=== PATIENT | female | born 2005 | race Caucasian/White ===

== ENCOUNTER 2024-04-30 13:13 | Outpatient (AMB) | payer BC, SELFPAY ==
--- NOTE | 2024-04-30 13:15 | MHC.PC.OV ---
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 Intake Note: New patient visit Allergies No Known Allergies Allergy (Verified 04/30/24 13:15) Medication List - Last Reconciled 04/30/24 by Radha Razo PA-C No Known Home Meds Tobacco use date assessed: 04/30/24 Dental Screening Dental Screen Date: 04/30/24 Did you have a dental visit in the last 12 months?: Yes Did you have a dental problem in the last 6 months where you did not have access to dental care?: No Was dental information given to patient?: Patient has dentist 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 She is transferring from [place]. She has a hx of anxiety and depression. Derm: Does complain today of right external ear itching/flaking. She has tried lotion without any reprieve. Denies any drainage, fever, chills or pain. No decreased hearing. She did take out a new piercing about a week ago but has not noticed any change in her symptoms. She does also complain today of acne that comes and goes. Does flare around the time of her menses. She says that she has used every hukv-zko-zxvnmrh and some prescription topical face washes without any improvement. Psych: Has a history of anxiety and depression and states for the most part the depressions very mild and minor but the anxiety comes and goes. She does at times have panic attacks but very rarely. She does not think that she would want to take something every day. She states that she wants to try going back to the gym. 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 1. Little interest or pleasure in doing things: not at all 2. Feeling down, depressed, or hopeless: not at all 3. Trouble falling or staying asleep, or sleeping too much: not at all 4. Feeling tired or having little energy: several days 5. Poor appetite or overeating: not at all 6. Feeling bad about yourself - or that you are a failure or have let yourself or your family down: several days 7. Trouble concentrating on things, such as reading the newspaper or watching television: not at all 8. Moving or speaking so slowly that other people could have noticed. Or the opposite - being so fidgety or restless that you have been moving around a lot more than usual: not at all 9. Thoughts that you would be better off or of hurting yourself in some way: not at all Total score: 2 Depression Screening Interpretation: Negative Depression Screening Done: Yes 72646 - PHQ-9 Billing: Yes Source: Developed by Drs. Jasper Rousseau, Megha Saba, Dutch Starkey and colleagues, with an educational merrick from [employer]. Thrive Questionnaire I am a: Patient What is your living situation today?: I have a steady place to live Within the past 12 months, did the food you bought not last and you didn't have the money to get more?: Never true Within the past 12 months, did you worry whether your food would run out before you got money to buy more?: Never true Do you have trouble paying for medicines?: No Do you have trouble getting transportation to medical appointments?: No Do you have trouble paying your heating and electricity bill?: No Do you have trouble taking care of your child, family member or friend?: No Do you have trouble with day-to-day activities such as bathing, preparing meals, shopping, managing finances, etc.?: No Are you currently unemployed and looking for a job?: No Are you interested in more education?: No Please select the resources that you would like help with: None Currently or been in a relationship where the following occur: No concerns reported THRIVE Score: 0 AUDIT C Alcohol Use Questionnaire (AUDIT-C) 1. How often do you have a drink containing alcohol?: Monthly or less 2. How many drinks containing alcohol do you have on a typical day when you are drinking?: 1 or 2 3. How often do you have six or more drinks on one occasion?: Never Total Score: 1 Score Reviewed/Action Taken: Yes SARITHA-7 AMB Questionnaire SARITHA-7 Feeling nervous, anxious, or on edge: 2 = More than half the days Not being able to stop or control worryin = Not at all Worrying too much about different things: 1 = Several days Trouble relaxin = Several days Being so restless that it is hard to sit still: 0 = Not at all Becoming easily annoyed or irritable: 1 = Several days Feeling afraid as if something awful might happen: 0 = Not at all Total SARITHA-7 score (0-4 normal; 5-9 mild; 10-14 moderate; 15-21 severe): 5 Source: Developed by Drs. Jasper Rousseau, Megha Saba, Dutch Starkey and colleagues, with an educational merrick from [employer]. SARITHA-7 Assessment Billing SARITHA-7 Assessment Tool: SARITHA-7 Assessment 19442 Physical exam (Primary Care) PHQ-9: PHQ-9 Score PHQ-9: Total score 2 04/30/24 13:17 Depression Screening Interpretation: Negative Currently or been in a relationship where the following occur: No concerns reported Const Orientation/consciousness: patient oriented x3 HENMT Ears: hearing grossly normal bilaterally Neck Thyroid: Thyroid normal Lymphatic: no lymphadenopathy noted Resp Auscultation: clear to auscultation bilaterally Cardio Rate: regular rate Rhythm: regular rhythm Heart sounds: S1 normal heart sound present and S2 normal heart sound present GI Inspection: Yes normal to inspection Palpation (GI): Soft to palpation and Other GI palpation findings present (nontender, no cva tenderness) Auscultation: normoactive bowel sounds Rectal Exam - Female: deferred Skin Other: Scattered open and closed comedones noted on the face. There is flaking noted the external right pinna. Neuro General: patient oriented x3, gait normal and no focal motor deficits Coding Level of Care Code New Pt Level 3 (52178) Complex EM visit Add On G2211 Diagnoses Generalized anxiety disorder F41.1 Dysthymia F34.1 Acne L70.9 Atopic dermatitis L20.9 Additional Codes PHQ-9 - 39715 - PHQ-9 Billing: Yes ([id number]) SARITHA-7 Assessment Billing - SARITHA-7 Assessment Tool: SARITHA-7 Assessment 58441 ([id number]) Assessment & Plan Assessment & Plan (1) Generalized anxiety disorder: Code(s): F41.1 - Generalized anxiety disorder Category: Medical Plan: Discussed that she can use hydroxyzine as needed. We reviewed risks and benefits and adverse effects of this medication. (2) Dysthymia: Code(s): F34.1 - Dysthymic disorder Category: Medical Plan: Currently feels well and does not want medication. (3) Acne: Code(s): L70.9 - Acne, unspecified Category: Medical Plan: We will try spironolactone. We did discuss that this can lower her blood pressure and cause electrolyte derangement specifically with potassium. We will monitor and recheck labs in 2 weeks after starting the medication along with blood pressure. She will return at that time also for a physical. Referral for derm. (4) Atopic dermatitis: Code(s): L20.9 - Atopic dermatitis, unspecified Category: Medical Plan: We will try triamcinolone cream. Reviewed risks and benefits and adverse effects of this medication. Orders: Orders Comprehensive [place]. Panel Fast Today F34.1 - Dysthymic disorder, F41.1 - Generalized anxiety disorder, Z00.00 - Encounter for general adult medical examination without abnormal findings Complete Blood Count Auto Diff Today F34.1 - Dysthymic disorder, F41.1 - Generalized anxiety disorder, Z00.00 - Encounter for general adult medical examination without abnormal findings Lipid Panel Today F34.1 - Dysthymic disorder, F41.1 - Generalized anxiety disorder, Z00.00 - Encounter for general adult medical examination without abnormal findings TSH reflex Free T4 Today F34.1 - Dysthymic disorder, F41.1 - Generalized anxiety disorder, Z00.00 - Encounter for general adult medical examination without abnormal findings UA CC w/rflx Micro + Cult Today F34.1 - Dysthymic disorder, F41.1 - Generalized anxiety disorder, Z00.00 - Encounter for general adult medical examination without abnormal findings, Z13.220 - Encounter for screening for lipoid disorders Referrals Dermatology Referral L20.9 - Atopic dermatitis, unspecified, L70.9 - Acne, unspecified Medications: New triamcinolone acetonide 0.025% 1 appl topical TID 15 grams 0RF hydroxyzine HCl 25 mg PO BID PRN 30 tabs 0RF anxiety spironolactone 25 mg PO DAILY 90 tabs 0RF
[2024-04-30 13:20] VITALS: BP 92/64; PULSE 92; RESP 12; O2SAT 98; BMI 24.4
--- OUTSIDE RECORDS SUMMARY | 2024-04-30 15:47 | XMS_ITS | Encounter Summary ---
Author Organization [facility] Address [address] [place] [address] Phone Care Team Providers Care Supervisor [employer] Name Role Phone Vidya Neumann MD Primary Care Provider [phone] Encounter Details Date Type Department Care Team (Late st Contact Info) Description 07/15/2017 [facility]version [facility]counter [facility] [address] [address] Social History Tobacco Use Types Packs/Day Years Used Date Smoking Tobacco: Never Assessed Comments Unknown Sex and Gender Information Value Date Recorded Sex Assigned at Not on file Legal Sex Female 6:19 PM EDT Gender Identity Not on file Sexual Orientation Not on file documented as of this encounter Plan of Treatment Not on file documented as of this encounter Visit Diagnoses Not on filedocumented in this encounter Care Teams Supervisor [employer] Relationship Specialty Start Date End Date Vidya Neumann MD [address] [place] [address] PCP - General Pediatrics 08/21/17 04/06/24 documented as of this encounter
--- OUTSIDE RECORDS SUMMARY | 2024-04-30 15:47 | XMS_ITS | Clinical Summary ---
Author Organization [facility] Address [address] [place], [place] [id number] Phone Care Team Providers Care Foreman Shipping Department Name Role Phone Unavailable Primary Care Provider Unavailabl e Allergies No known active allergies Medications No known medications Active Problems Problem Noted Date Diagnosed Date Allergic rhinitis Immunizations Immunization Administration Dates Next Due DTaP 07/21/2008, 5,2003,07/30,2003 HPV Vaccine 9 Valent 10/12/2017,09/29/2016 Hep A, ped/adol 10/12/2017,09/29/2016 Hep B, ped/adol 02/05/2004,2003,2003 Hib (PRP-T) 07/07/2004, 4,2003,06/02 IPV 07/21/2008, 4,2003,06/02 Influenza, injectable, quadrivalent 01/04/2008 Influenza, injectable, triva lent, preservative free 12/16/2004,02/05/2004,2003 MMR 07/05/2007,04/08/2004 Meningococcal Conj (Menactra) MCV4P 08/28/2014 Pneumococcal Conjugate 2003,2003,08/2003 Tdap 08/28/2014 Varicella 07/05/2007,04/08/2004 Family History Medical History Relation Name Comments Asthma Father Relation Name Status Comments Father Alive healthy, thyroi d problem, hx of asthma diagnosed with Asthma, unspecified Mother Alive healthy, thyroi d Social History Tobacco Use Types Packs/Day Years Used Date Smoking Tobacco: Never Assessed Comments No Sex and Gender Information Value Date Recorded Sex Assigned at Not on file Legal Sex Female 6:19 PM EDT Gender Identity Not on file Sexual Orientation Not on file Last Filed Vital Signs Vital Sign Reading Time Taken Comments Blood Pressure 112/64 10/12/2017 9:54 AM EDT Pulse - - Temperature 36.1 ??C (97 ??F) 11/26/2014 12: 00 AM EDT Respiratory Rate - - Oxygen Saturation - - Inhaled Oxygen Concentration - - Weight 59.8 kg (131 lb 12.8 oz) 10/12/2017 9:54 AM EDT Height 165.1 cm (5' 5 ) 10/12/2017 9:54 AM EDT Body Mass Index 21.93 10/12/2017 9:54 AM EDT Plan of Treatment Health Maintenance Due Date Last Done Comments Men B Vaccine (1 of 2 - Standard) 2019 Influenza Vaccines (#1) 2023 01/04/20 08, 12/16/2004, 02/05/2004, Additional history exists COVID-19 Vaccine ( - 2023- season) 2023 DTaP,Tdap,and Td Vaccines (7 - Td or Tdap) 08/28/2024 08/28/2014, 07/21/2008, 07/07/2004, Additional history exists Pneumococcal Vaccine Aged Out 2003, 2003, 2003 No longer eligible based on patient's age to complete this topic Hepatitis B Vaccines Completed 02/05/2004, 2003, 2003 HIB Vaccines Completed 07/07/2004, 06/26, 2003, Additional history exists MMR Vaccines Completed 07/05/2007, 04/08/2004 Varicella Vaccines Completed 07/05/2007, 04/08/2004 IPV Vaccines Completed 07/21/2008, 06/26, 02/05/2004, Additional history exists Meningococcal Vaccine Aged Out 08/28/2014 No jimbo jing eligible based on patient's age to complete this topic HPV Vaccines Completed 10/12/2017, 09/29/2016 Hepatitis A Vaccines Completed 10/12/2017, 09/30/19 Insurance * Guarantor: KARTHIK OCONNOR Account Type Relation to Patient Date of Phone Billing Address Personal/Family Mother [address] [place] [phone] [place] [address] HMO
--- OUTSIDE RECORDS SUMMARY | 2024-04-30 15:47 | XMS_ITS | Clinical Summary ---
Author Organization [facility] it Address [address] [place] [address] Care Team Providers Care Legal Process Specialist Name Role Phone Yasemin Ballesteros MD Primary Care Provider [phone] Immunizations Name Administration Dates Next Due Pfizer SARS-CoV-2 COVID-19, mRNA, LNP-S, preservative free 07/15/2020,06/24/2020 Surgical History Surgery Date Site/Laterality Comments OTHER SURGICAL HISTORY PROCEDURE: DENIES PREVIOUS SURGERY Medical History Medical History Date Comments Allergic rhinitis 02/13/2018 DX:Allergic rh initis Depression 02/13/2018 DX:Depression; C OMMENT: 10/12/17 doing better with mood. Middle School Counselor has spoken with High School Counselor- available if needed. Mother to monitor and all if not doing well. At that point, patient will be referred to Outside Therapist Family History Medical History Relation Name Comments No Known Problems Brother Asthma Father Heart failure Father related to dec ompensated thyroid disease Hyperthyroidism Father Coronary artery disease Maternal Grandfather s/p VA prior to age 50 now with AICD/PPM, HTN, HLD Hyperthyroidism Maternal Grandmother Hyperthyroidism Mother Relation Name Status Comments Brother Alive Father Alive Maternal Grandfather Alive Maternal Grandmother Alive Mother Alive Social History Tobacco Use Types Packs/Day Years Used Date Smoking Tobacco: Never Smokeless Tobacco: Never Alcohol Use Standard Drinks/Week Comments No 0 (1 standard drink = 0.6 oz pur e alcohol) Comments Unknown Sex and Gender Information Value Date Recorded Sex Assigned at Not on file Legal Sex Female 3:57 AM EST Gender Identity Not on file Sexual Orientation Not on file Obstetrics History Last Filed Vital Signs Vital Sign Reading Time Taken Comments Blood Pressure 121/76 01/23/2022 10:37 AM EST Pulse 73 01/23/2022 10:37 AM EST Temperature - - Respiratory Rate - - Oxygen Saturation - - Inhaled Oxygen Concentration - - Weight 63.7 kg (140 lb 6.4 oz) 01/23/2022 10:37 AM EST Height 167.6 cm (5' 6 ) 01/23/2022 10:37 AM EST Body Mass Index 22.66 01/23/2022 10:37 AM EST Plan of Treatment Upcoming Encounters Date Type Department Care Team (Late st Contact Info) Description 07/23/2024 11:30 AM EDT Office Visit Obstetrics and Gynecology - [place] [address] [place] [address] Feng Tanvir, [facility] [address] [place] [id number] Health Maintenance Due Date Last Done Comments Gonorrhea/Chlamydia Screening 2003 Meningococcal B Vacine (1 of 2 - Standard) 2019 Annual Well Child Visit (3-21 years old) 01/29/2022 01/28/2021, 01/23/2020, 10/14/2018 Depression Screening 01/29/2022 HIV Screening 01/29/2022 Hepatitis C Screening 01/29/2022 Social Influencers of Health Screening 01/29/2022 COVID-19 Vaccine ( season) 2023 07/15/2020, 06/24/2020 Influenza Vaccine (#1) 2023 , 01/23/2020, 01/04/2008, Additional history exists Cervical Cancer Screening: Pap Smear 2024 DTaP,Tdap,and Td Vaccines (7 - Td or Tdap) 08/28/2024 08/28/2014, 07/21/2008, 07/07/2004, Additional history exists Pneumococcal Vaccine: Pediatrics (0 to 5 Years) and At-Risk Patients (6 to 64 Years) Aged Out 2003, 2003, 2003 No longer eligible based on patient's age to complete this topic Hepatitis B Vaccines Completed 02/05/2004, 2003, 2003 HIB Vaccines Completed 07/07/2004, 09/27, 2003, Additional history exists MMR Vaccines Completed 07/05/2007, 04/08/2004 Varicella Vaccines Completed 07/05/2007, 04/08/2004 IPV Vaccines Completed 07/21/2008, 06/26, 02/05/2004, Additional history exists HPV Vaccines Completed 10/12/2017, 09/29/2016 Hepatitis A Vaccines Completed 10/12/2017, 09/30/19 Meningococcal ACWY Vaccine Completed 01/23/2020, RSV Immunization Patients Under 20 months Aged Out No longer eligible based on patient's age to complete this topic Insurance Care Teams Legal Process Specialist Relationship Specialty Start Date End Date Yasemin Ballesteros MD [address] [place] [address] PCP - General Pediatrics 06/22/21
== END 2024-04-30 13:49 | disposition home or self-care (01) ==
PROVIDERS: PCP Physician Assistant; Visit Provider Physician Assistant
DX: F41.1 Generalized anxiety disorder (principal); F34.1 Dysthymic disorder; L70.9 Acne, unspecified; L20.9 Atopic dermatitis, unspecified

== ENCOUNTER → 2024-04-30 13:13 | Outpatient (BNVA) | payer BC, SELFPAY | PROVIDERS: PCP Physician Assistant; Visit Provider Physician Assistant | DX: F41.1 Generalized anxiety disorder (principal); F34.1 Dysthymic disorder; L70.9 Acne, unspecified; L20.9 Atopic dermatitis, unspecified | CPT/HCPCS: 96127 ==

== ENCOUNTER 2024-06-04 09:12 | Outpatient (REF) | payer BC, SELFPAY ==
--- OUTSIDE RECORDS SUMMARY | 2024-06-04 09:49 | XMS_ITS | Clinical Summary ---
Author Organization [facility] Address [address] [place] [address] Care Team Providers Care Neonatal Specialist Name Role Phone Unavailable Primary Care Provider Unavailabl e Source Comments PLEASE NOTE, if this patient is a minor, it may be UNLAWFUL to discuss sensitive information that is contained in these records (such as FAMILY PLANNING, MENTAL HEALTH or SUBSTANCE ABUSE) with the minor patient's parent or other person without the patient's specific authorization.[facility] Immunizations Immunization Administration Dates Next Due PFIZER COVID VACCINE, PURPLE CAP, 12+ 07/15/2020 ,06/24/2020 Social History Tobacco Use Types Packs/Day Years Used Date Smoking Tobacco: Never Assessed Social Connections Answer Date Recorded Social Connections and Isolation 0 06/24/2020 Financial Resource Strain Answer Date R ecorded Financial Resource Strain 0 2020 Stress Answer Date Recorded Stress 0 06/24/2020 Physical Activity Answer Date Recorded Physical Activity 0 06/24/2020 Food Insecurity Answer Date Recorded Food 0 06/24/2020 Transportation Needs Answer Date Record ed Transportation 0 06/24/2020 Housing Stability Answer Date Recorded Housing 0 06/24/2020 Safety and Environment Answer Date Gama rded Safety 0 06/24/2020 Utilities Answer Date Recorded Utilities 0 06/24/2020 Employment Answer Date Recorded Employment 0 06/24/2020 Comments Unknown Sex and Gender Information Value Date Recorded Sex Assigned at Not on file Legal Sex Female 12:29 PM PDT Gender Identity Not on file Sexual Orientation Not on file Plan of Treatment Health Maintenance Due Date Last Done Comments Anxiety Screening 2003 HPV Screening 2003 Hepatitis C Screening 2003 Pap + HPV 2003 Tobacco Screening 2003 Chlamydia Screening 2016 Gonorrhea Screening 2016 Imm-Varicella (1 of 2 - 13+ 2-dose series) 2016 HIV Screening 2018 Imm-HPV (1 - 3-dose series) 2018 Relationship Safety Screening/Counseling 2018 Hypertension Screening (#1) 2021 Imm-DTaP/Tdap/Td (1 - Tdap) 2022 Imm-Hepatitis B (1 of 3 - 19+ 3-dose series) 2022 [id number] (3 - 2023- season) 2023 07/15/2020, 06/24/2020 Imm-Influenza (#1) 2023 Alcohol and Drug Screen 02/27/2024 Depression Annual Screen 02/27/2024 Cervical Cancer Screening 2024 Pap Smear 2024 Cervical Ablation/Cold-Knife Conization Discontinued Cervical Cryotherapy Discontinued Colposcopy Discontinued Endometrial Biopsy Discontinued Excision/Leep Discontinued HPV Genotyping Discontinued Imm-Hepatitis A Aged Out No longer el igible based on patient's age to complete this topic Vaginal Pap Discontinued Vulvoscopy Discontinued Insurance DANTE AWAD/MISTY JONES Member Subscriber Plan / Payer (Ef fective 2016-Present) Name:Connie Salazar Relation to Subscriber:Self Name:Connie Salazar Payer ID:[id number] Type:Indemnity Address: [facility] [address] [place] [address]
--- OUTSIDE RECORDS SUMMARY | 2024-06-04 09:49 | XMS_ITS | Clinical Summary ---
Author Organization [facility] Address [address] [place], [place] [phone] Phone Care Team Providers Care Meat Counter Worker Name Role Phone Unavailable Primary Care Provider [...] Hepatitis A Vaccines Completed 10/12/2017, 09/30/[address] [place] [address] [place] [address] HMO
--- OUTSIDE RECORDS SUMMARY | 2024-06-04 09:49 | XMS_ITS | Encounter Summary ---
Author Organization [facility] Address [address] [place] [phone] Phone Care Team Providers Care Realtime Reporter Name Role Phone Vidya Neumann MD Primary Care Provider [phone] Encounter Details Date Type Department Care Team (Late st Contact Info) Description 07/15/2017 [facility]counter [facility] [address] [address] Social History Tobacco Use Types Packs/Day Years [...] on filedocumented in this encounter Care Teams Realtime Reporter Relationship Specialty Start Date End Date Vidya Neumann MD [address] [place] [address] PCP - General Pediatrics 08/21/17 04/06/24 documented as of this encounter
--- OUTSIDE RECORDS SUMMARY | 2024-06-04 09:50 | XMS_ITS | Clinical Summary ---
Author Organization [facility] it Address [address] [place] [address] Care Team Providers Care Car Repair Supervisor Name Role Phone Yasemin Ballesteros MD Primary Care Provider [phone] Allergies No known active allergies Medications hydrOXYzine HCL (ATARAX) 10 mg tablet TAKE 1 TAB BY MOUTH 3 TIMES DAILY NEEDED FOR ANXIETY. CAN INCREASE DOSE TO 2 TABS 3 TIMES A DAY NEEDED IF LACK OF EFFICIENCY. 05/20/2021 Active escitalopram (LEXAPRO) 10 mg tablet Take 1 tablet (10 mg total) by mouth 1 (one) time each day. 05/11/2021 Active Active Problems Problem Noted Date Diagnosed Date Anxiety 01/23/2020 Weight loss 10/14/2018 Vitamin D deficiency 03/22/2018 Allergic rhinitis 02/13/2018 Depression 02/13/2018 Overview (05/01/2024): 10/12/17 doing better with mood. Middle School Counselor has spoken with High School Counselor- available if needed. Mother to monitor and all if not doing well. At that point, patient will be referred to Outside Therapist Immunizations Name Administration Dates Next Due DTaP (Infanrix) 6wks to less than 7yo ,07/07/2004,2003,07/30,2003 [id number] (Pentacel) 2mo to less than 5yo 07/07/2004,2003,2003,06/02 HPV 9-valent (Gardisil) 9yo to less than 46yo 10/12/2017,09/29/2016 Hepatitis A Pediatric (Havri x; Vaqta) 12mo to less than 19yo 10/12/2017,09/29/2016 Hepatitis B Pediatric (Enger ix B; Recombivax HB) to less than 20 yo 02/05/2004,2003,2003 IPV Inactivated polio (Ipol) 6wks and older 07/21/2008,02/05/2004,2003,06/02 Influenza trivalent, 0.5mL, preservative free (Fluarix; FluLaval; Fluzone) ages 6mo and older (Afluria) 3 years and older 01/28/2021,01/23/2020 Influenza trivalent, with pr eservative (Fluzone; Afluria) 6mo and older 01/04/2008,12/16/2004,02/05/2004,12/20 MMR, measles mumps and rubel la Live (Priorix; M-M-R II) 12mo and older 07/05/2007,04/08/2004 Meningococcal MCV4P 01/23/2020,08/28/2014 [facility] SARS-CoV-2 COVID-19, mRNA, LNP-S, preservative free 07/15/2020,06/24/2020 Pneumococcal Conjugate Vacci ne, 7 Valent 2003,2003,2003 Tdap Tetanus diptheria acell ular pertussis (Boostrix; Adacel) 7yo and older 08/28/2014 Varicella live (Varivax) 12m o and older 07/05/2007,04/08/2004 Surgical History Surgery Date Site/Laterality Comments OTHER [...] Father Coronary artery disease Maternal Grandfather s/p [place] prior to age 50 now with AICD/PPM, [...] AM EDT Office Visit Obstetrics and Gynecology [facility] [address] [place] [phone] Tanvir Toney, [facility] [address] [place] [address] Health Maintenance Due Date Last Done Comments Meningococcal B Vaccine (1 of 2 - Standard) 2019 Annual Well Child Visit (3-21 years old) 01/29/2022 01/28/2021, 01/23/2020, 10/14/2018 Depression Screening 01/29/2022 HIV Screening 01/29/2022 Hepatitis C Screening 01/29/2022 Social Influencers of Health Screening 01/29/2022 Gonorrhea/Chlamydia Screening 01/23/2023 01/23/2022 COVID-19 Vaccine ( season) 2023 07/15/2020, 06/24/2020 Influenza Vaccine (#1) 2023 , 01/23/2020, 01/04/2008, Additional history exists Cervical Cancer Screening: Pap Smear 2024 DTaP,Tdap,and Td Vaccines (7 - Td or Tdap) 08/28/2024 08/28/2014, 07/21/2008, 07/07/2004, Additional history exists Cholesterol Screening (Lipid Panel) 01/22/2025 01/23/2020 Pneumococcal Vaccine: Pediatrics (0 to 5 Years) [...] 09/29/2016 Hepatitis A Vaccines Completed 10/12/2017, 09/30/19 17 Meningococcal ACWY Vaccine Completed 01/23/2020, RSV Immunization Patients Under 20 months Aged Out No longer eligible based on patient's age to complete this topic Procedures Procedure Name Priority Date/Time Associated Diagnosis Comments GONORRHEA/CHLAMYDIA SCRREENING Routine 01/23/2022 LIPID PANEL Routine 01/23/2020 from Last 3 Months or Most Recently Relevant to Health Maintenance Results * Gonorrhea/Chlamydia Screening (01/23/2022) Gonorrhea/Chla mydia Screening ABSTRACTED us Historical Provider MD HEALTH MAINTENANCE Final Result * Lipid panel (01/23/2020) LDL/HDL Ratio 2 0 - 4 Triglycerides 50 0 - 150 mg/dL Cholesterol 140 0 - 200 mg/dL HDL 58 >=40 mg/dL LDL Cholesterol 72 0 - 100 mg/dL Blood Venous blood specimen / Unknown us Historical Provider LAB BLOOD ORDERABLES Radha l Result from Last 3 Months or Most Recently Relevant to Health Maintenance Insurance Care Teams Car Repair Supervisor Relationship Specialty Start Date End Date Yasemin Ballesteros MD [address] [place] [address] PCP - General Pediatrics 06/22/21
[2024-06-04 11:40] LABS: MANUAL DIFF FLAG NO
[2024-06-04 12:07] LABS: Basophils Percent Auto 0.6 % (0-2); Eosinophils Absolute Auto 0.1 X10*3/uL (0.0-0.4); Eosinophils Percent Auto 1.1 % (0-4); Hematocrit 41.1 % (37.0-47.0); Hemoglobin 13.5 g/dl (12.0-16.0); Imm Gran Abs Auto 0.02 X10*3/uL (0.00-0.03); Imm Gran Pct Auto 0.4 % (0.0-0.4); Lymphocytes Absolute Auto 1.5 X10*3/uL (1.2-4.9); Lymphocytes Percent Auto 28.4 % (20-40); Mean Corpuscular HGB Conc 32.8 g/dl (31.0-35.0); Mean Corpuscular Volume 88.4 fL (80.0-98.0); Mean Platelet Volume 10.2 fL (9.4-12.3); Monocytes Absolute Auto 0.5 X10*3/uL (0.1-1.2); Monocytes Percent Auto 9.4 % (2-11); Neutrophils Absolute Auto 3.1 x10*3/uL (2.0-8.3); Neutrophils Percent Auto 60.1 % (45-73); Platelet Count 253 X10*3/uL (160-400); Red Blood Count 4.65 X10*6/uL (4.20-5.50); Red Cell Distribution Width 12.8 % (11.0-16.0); White Blood Count 5.2 X10*3/uL (4.8-10.8)
[2024-06-04 12:24] LABS: Alanine Aminotransferase 71 U/L (0-31); Albumin Level 4.1 g/dL (3.5-5.0); Alkaline Phosphatase 55 U/L (39-117); Anion Gap 7 (12-20); Aspartate Amino Transferase 53 U/L (5-31); Bilirubin Total 0.3 mg/dL (0.0-1.0); Blood Urea Nitrogen 11 mg/dL (9-16); Carbon Dioxide 24 mmol/L (22-29); Chloride 111 mmol/L (96-108); Cholesterol 114 mg/dL (<200); Estimated Glomerular Filt Rate > 60; Glucose Fasting 82 mg/dL (60-99); HDL Cholesterol 57 mg/dL (>40); LDL Cholesterol Calculated 51 mg/dL (<100); Potassium 4.2 mmol/L (3.3-5.1); Sodium 138 mmol/L (135-145); Total Protein 6.8 g/dL (6.5-8.0); Triglycerides 34 mg/dL (<150)
[2024-06-04 12:44] LABS: TSH reflex Free T4 1.07 uIU/mL (0.32-4.0)
== END 2024-06-04 09:13 | disposition home or self-care (01) ==
LOC: HO.WFDLDS 09:12
PROVIDERS: Visit Provider Physician Assistant
DX: Z00.00 Encounter for general adult medical examination without abnormal findings (principal); F41.1 Generalized anxiety disorder; F34.1 Dysthymic disorder; Z13.6 Encounter for screening for cardiovascular disorders
CPT/HCPCS: 36415; 80053; 80061; 84443; 85025

== ENCOUNTER → 2024-06-05 08:24 | Outpatient (BNVA) | payer BC, SELFPAY | PROVIDERS: PCP Physician Assistant; Visit Provider Physician Assistant | DX: Z13.89 Encounter for screening for other disorder (principal) ==

== ENCOUNTER 2024-06-24 08:56 | Outpatient (REF) | payer BC, SELFPAY ==
--- OUTSIDE RECORDS SUMMARY | 2024-06-24 09:27 | XMS_ITS | Clinical Summary ---
Author Organization [facility] Address [address] [place] [address] Care Team Providers Care Purchasing Intern Name Role Phone Unavailable Primary Care Provider [...] of 3 - 19+ 3-dose series) 2022 [id number] (3 - 2023- season) 2023 07/15/2020, 06/24/2020 [...] topic Vaginal Pap Discontinued Vulvoscopy Discontinued Insurance DANET AWAD/MISTY JONES Member Subscriber Plan / Payer (Ef fective 2016-Present) Name:Connie Salazar Relation to Subscriber:Self Name:Connie Salazar Payer ID:[id number] Type:Indemnity Address: [facility] [id number] [place] [address]
--- OUTSIDE RECORDS SUMMARY | 2024-06-24 09:27 | XMS_ITS | Encounter Summary ---
Author Organization [facility] Address [address] [place] [address] Care Team Providers Care Neuropsychologist Name Role Phone Gabby Latham MD Primary Care Provider Un available Gabby Latham MD Primary Care Provider Un available Yasemin Ballesteros MD Primary Care Provider [phone] Reason for Visit * Reason Onset Date Comments medication problems 02/09/2020 Encounter Details Date Type Department Care Team Description 02/09/2020 Telephone Medicine/Pediatrics - [address] [phone] Gabby Latham MD medication problems Social History Tobacco Use Types Packs/Day Years Used Date Smoking Tobacco: Never Smokeless Tobacco: Never Comments:no second hand smok e exposure Alcohol Use Standard Drinks/Week Comments No 0 (1 standard drink = 0.6 oz pur e alcohol) Sex Assigned at Date Recorded Not on file COVID-19 Exposure Response Date Recorded In the last month, have you been in contact with someone who was confirmed or suspected to have Coronavirus / COVID-19? No / Unsure 01/23/2020 11:07 AM EST documented as of this encounter Miscellaneous Notes * Telephone Encounter - Rachael Chand L.P.N. - 02/11/2020 11:49 AM EST Verbal given * Telephone Encounter - Gabby Latham MD - 02/11/2020 7:33 AM EST Yes, capsules would be fine. Thanks. * Telephone Encounter - Rachael Chand L.P.N. - 02/10/2020 4:09 PM EST Pharmacy states Cholecalciferol is not available 1.25 MG (89821 UT) Paper And Pulp Mill Operator issue but do have capsules available, ok to give verbal? * Telephone Encounter - Ysabel Conn - 02/09/2020 2:17 PM EST Who is calling? A pharmacist: Pharmacy: [facility] Pharmacist Name: via fax Pharmacy Name of the medication Cholecalciferol (VITAMIN D3) 1.25 MG (55979 UT) Tab What is the specific problem or interaction? Product is not available If the patient is having a problem with taking the med - how long has the problem been going on? N/A documented in this encounter Plan of Treatment Not on file documented as of this encounter Visit Diagnoses Not on filedocumented in this encounter Care Teams Neuropsychologist Relationship Specialty Start Date End Date Gabby Latham MD PCP - General Internal Medicine 12/28/17 Gabby Latham MD PCP - General Internal Medicine 03/19/20 Yasemin Ballesteros MD [address] [place] [address] PCP - General Pediatrics 06/22/21 documented as of this encounter
--- OUTSIDE RECORDS SUMMARY | 2024-06-24 09:27 | XMS_ITS | Encounter Summary ---
Author Organization [facility] Address [address] [place] [address] Phone Care Team Providers Care Traffic Sign Supervisor Name Role Phone Vidya Neumann MD Primary Care Provider [phone] Encounter Details Date Type Department Care Team (Late st Contact Info) Description 07/15/2017 Conversion [facility]counter [facility] [address] [address] Social History Tobacco Use Types Packs/Day Years [...] on filedocumented in this encounter Care Teams Traffic Sign Supervisor Relationship Specialty Start Date End Date Vidya Neumann MD [address] [place] [address] PCP - General Pediatrics 08/21/17 04/06/24 documented as of this encounter
--- OUTSIDE RECORDS SUMMARY | 2024-06-24 09:27 | XMS_ITS | Encounter Summary ---
Author Organization [facility] Address [address] [place] [address] Care Team Providers Care Floral Merchandiser Name Role Phone Gabby Latham MD Primary Care Provider Un available Gabby Latham MD Primary Care Provider Un available Yasemin Ballesteros MD Primary Care Provider [phone] Encounter Details Date Type Department Care Team Description 2018 MyChart Proxy Form Medical Records [address] [place] [address] Abstract, Provider Social History Tobacco Use Types Packs/Day Years Used Date Smoking Tobacco: Never Smokeless Tobacco: Never Alcohol Use Standard Drinks/Week Comments No 0 (1 standard drink = 0.6 oz pur e alcohol) Sex Assigned at Date Recorded Not on file documented as of this encounter Plan of Treatment Not on file documented as of this encounter Visit Diagnoses Not on filedocumented in this encounter Care Teams Floral Merchandiser Relationship Specialty Start Date End Date Gabby Latham MD PCP - General Internal Medicine 12/28/17 Gabby Latham MD PCP - General Internal Medicine 03/19/20 Yasemin Ballesteros MD [address] [place], [place] [id number] PCP - General Pediatrics 06/22/21 documented as of this encounter
--- OUTSIDE RECORDS SUMMARY | 2024-06-24 09:27 | XMS_ITS | Clinical Summary ---
Author Organization [facility] Address [address] [place], [place] [phone] Phone Care Team Providers Care Strategic Account Manager Name Role Phone Unavailable Primary Care Provider [...] Hepatitis A Vaccines Completed 10/12/2017, 09/30/[address] [place] [place] [address] HMO
--- OUTSIDE RECORDS SUMMARY | 2024-06-24 09:27 | XMS_ITS | Clinical Summary ---
Author Organization [facility] it Address [address] [place] [address] Care Team Providers Care Sample Color Maker Name Role Phone Yasemin Ballesteros MD Primary Care Provider [phone] Allergies No known active allergies Medications hydrOXYzine [...] (Infanrix) 6wks to less than 7yo ,07/07/2004,2003,07/30,2003 [id number] (Pentacel) 2mo to less than 5yo 07/07/2004,2003,2003,06/02 [...] 12mo and older 07/05/2007,04/08/2004 Meningococcal MCV4P 01/23/2020,08/28/2014 [facility] SARS-CoV-2 COVID-19, mRNA, LNP-S, preservative free 07/15/2020,06/24/2020 [...] Father Coronary artery disease Maternal Grandfather s/p [place] prior to age 50 now with AICD/PPM, [...] AM EDT Office Visit Obstetrics and Gynecology [facility] [address] [place] [phone] Tanvir Toney, [facility] [address] [place] [address] Health Maintenance Due Date Last Done Comments Meningococcal B Vaccine (1 of 2 - Standard) 2019 Annual Well Child Visit (3-21 years old) 01/29/2022 01/28/2021, 01/23/2020, 10/14/2018 Depression Screening 01/29/2022 HIV Screening 01/29/2022 Hepatitis C Screening 01/29/2022 Social Influencers of Health Screening 01/29/2022 Gonorrhea/Chlamydia Screening 01/23/2023 01/23/2022 COVID-19 Vaccine ( season) 2023 07/15/2020, 06/24/2020 Cervical Cancer Screening: Pap Smear 2024 DTaP,Tdap,and Td Vaccines (7 - Td or Tdap) 08/28/2024 08/28/2014, 07/21/2008, 07/07/2004, Additional history exists Influenza Vaccine (Season Ended) 2024 01/28/2021, 01/23/2020, 01/04/2008, Additional history exists Cholesterol Screening (Lipid Panel) [...] Relevant to Health Maintenance Insurance Care Teams Sample Color Maker Relationship Specialty Start Date End Date Yasemin Ballesteros MD [address] [place] [address] PCP - General Pediatrics 06/22/21
--- OUTSIDE RECORDS SUMMARY | 2024-06-24 09:27 | XMS_ITS | Encounter Summary ---
Author Organization [facility] Address [address] [place] [address] Care Team Providers Care Memory Care Program Director Name Role Phone Gabby Latham MD Primary Care Provider Un available Yasemin Ballesteros MD Primary Care Provider [phone] Reason for Visit * Reason Comments E-prescribe Rx Request Encounter Details Date Type Department Care Team Description 03/24/2021 Refill Pediatrics [address] [address] Kristen Coombs MD E-prescribe Rx Request Social History Tobacco Use Types Packs/Day Years Used Date Smoking Tobacco: Never Smokeless Tobacco: Never Comments:no second hand smok e exposure Alcohol Use Standard Drinks/Week Comments No 0 (1 standard drink = 0.6 oz pur e alcohol) Sex Assigned at Date Recorded Not on file documented as of this encounter Miscellaneous Notes * Telephone Encounter - Mariann Reddy - 03/24/2021 8:37 AM EST When was patients last PE/WCC? 01/28/21 When is patients next PE/WCC scheduled? Gabby Latham RX REQUEST WHEN MED IS ON THE LIST: All of the medications requested were on the CURRENT MEDS list Did you check the Pharmacy information above?: YES Indicate how soon the patient needs the script: BY THE END OF THE DAY Patient would like script to be: E-PRESCRIBED/FAXED TO PHARMACY Is the doctor here today?: NO Can the message wait until the doctor returns?: YES Has the patient been told that the prescription will not be filled until the end of the day? YES Gabby Latham Payor: ANDRE/HMO FFS / Plan: HMO $30 [employer] [id number] / Product Type: HMO PRE-PAID documented in this encounter Plan of Treatment Not on file documented as of this encounter Visit Diagnoses Not on filedocumented in this encounter Care Teams Memory Care Program Director Relationship Specialty Start Date End Date Gabby Latham MD PCP - General Internal Medicine 03/19/20 Yasemin Ballesteros MD [address] [place] [id number] PCP - General Pediatrics 06/22/21 documented as of this encounter
[2024-06-24 11:39] LABS: Appearance Urine Clear; Color Urine Yellow; Glucose Urine UA Negative (Negative); Leukocyte Esterase Urine Negative (Negative); Nitrite Urine Negative (Negative); Specific Gravity - Urine >= 1.030 (1.005-1.025); Urine Blood Negative (Negative); Urine Ketones Negative (Negative); Urine Protein Negative (Neg-Trace)
[2024-06-24 12:03] LABS: Alanine Aminotransferase 15 U/L (0-31); Albumin Level 4.1 g/dL (3.5-5.0); Alkaline Phosphatase 60 U/L (39-117); Aspartate Amino Transferase 15 U/L (5-31); Bilirubin Direct 0.1 mg/dL (0.0-0.5); Bilirubin Total 0.3 mg/dL (0.0-1.0); Total Protein 6.7 g/dL (6.5-8.0)
[2024-06-24 12:12] LABS: HBS Num1 0.29 mIU/mL (0-7.99); HBsAGNum1 0.35 S/CO (0.00-0.99); Hepatitis A Antibody IgG REACTIVE (Nonreactive); Hepatitis B Surface Antigen Negative (Negative); ~Hepatitis A Antibody IgG 2.24 S/CO (0.00-0.99); ~Hepatitis B Surface Antibody NONREACTIVE (Nonreactive); ~Hepatitis C Antibody Nonreactive (Nonreactive)
[2024-06-24 12:16] LABS: Ferritin 17 ng/mL (10-122)
[2024-06-28 18:23] LABS: Vitamin D 25-OH, D2 <4 ng/mL; Vitamin D 25-OH, D3 9 ng/mL; Vitamin D 25-OH, Total 9 ng/mL (30-100)
== END 2024-06-24 08:57 | disposition home or self-care (01) ==
LOC: HO.WFDLDS 08:56
PROVIDERS: Visit Provider Physician Assistant
DX: Z00.00 Encounter for general adult medical examination without abnormal findings (principal); R94.5 Abnormal results of liver function studies; Z13.220 Encounter for screening for lipoid disorders; F34.1 Dysthymic disorder; F41.1 Generalized anxiety disorder
CPT/HCPCS: 36415; 80076; 81003; 82306; 82728; 86706; 86708; 86803; 87340

== ENCOUNTER 2024-06-25 15:28 | Outpatient (AMB) | payer BC, SELFPAY ==
--- NOTE | 2024-06-25 15:32 | A.OFFPC_ITS ---
Vital Signs 06/25/24 15:34 Height 5 ft 3.86 in Weight 142 lb 8 oz BMI 24.6 BP 94/64 Blood Pressure Location Lt brachial Position Sitting Respiration 12 Pulse 88 Pulse Source Pulse Oximeter Pulse Oximetry (%) 96 Oxygen Delivery Method Room Air Intake Visit Reasons: physical Intake Note: Follow up Bituminous Distributor Operator Required: No Allergies No Known Allergies Allergy (Verified 06/25/24 15:33) Medication List - Last Reconciled 06/25/24 by Radha Razo PA-C hydroxyzine HCl 25 mg PO BID PRN spironolactone 25 mg PO DAILY triamcinolone acetonide 0.025% 1 appl topical TID Tobacco use date assessed: 06/25/24 Dental Screening Dental Screen Date: 04/30/24 HPI physical HPI Details Patient is a 19-year-old female who presents today for a cpe. She is transferring from [place]. She has a hx of anxiety and depression. Derm: States that her ear is responding to the triamcinolone cream and she does have an appointment in June with Dermatology. She does also complain today of acne that comes and goes. We started spironolactone which she feels is effective. BNP was rechecked after starting this medication and no issues. Psych: Has a history of anxiety and depression and states for the most part the depressions very mild and minor but the anxiety comes and goes. She does at times have panic attacks but very rarely. She does not think that she would want to take something every day. She states that she wants to try going back to the gym. GI: has had recent elevated lfts. No abdominal pain. Did get labs done after drinking. Repeat labs were normal. She states that this is concerning to her however because she has never had abnormal LFTs. She was not sick at the time and did not have any nausea or vomiting. No abdominal pain. She says she also did not drink heavily just a couple drinks. Casting And Curing Operator: Follows with [facility]. States for the last year she has been getting heavier and longer periods. She states she gets cramps and lasting pain even after the period is over. She states that she gets a lot of discomfort specifically on the left. 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 Current occupational exposures/hazards: No Cognitive needs: No Hearing needs: No Vision needs: No Questionnaire Thrive Questionnaire Date Thrive assessed: 04/30/24 I am a: Patient What is your living situation today?: I have a steady place to live Within the past 12 months, did the food you bought not last and you didn't have the money to get more?: Never true Within the past 12 months, did you worry whether your food would run out before you got money to buy more?: Never true Do you have trouble paying for medicines?: No Do you have trouble getting transportation to medical appointments?: No Do you have trouble paying your heating and electricity bill?: No Do you have trouble taking care of your child, family member or friend?: No Do you have trouble with day-to-day activities such as bathing, preparing meals, shopping, managing finances, etc.?: No Are you currently unemployed and looking for a job?: No Are you interested in more education?: No Please select the resources that you would like help with: None Currently or been in a relationship where the following occur: No concerns reported THRIVE Score: 0 AUDIT C Alcohol Use Questionnaire (AUDIT-C) 1. How often do you have a drink containing alcohol?: Monthly or less 2. How many drinks containing alcohol do you have on a typical day when you are drinking?: 1 or 2 3. How often do you have six or more drinks on one occasion?: Never Total Score: 1 Physical exam (Primary Care) Vital Signs: Last Vital Signs Pulse 88 06/25/24 15:34 Resp 12 06/25/24 15:34 BP 94/64 06/25/24 15:34 Pulse Ox 96 06/25/24 15:34 Oxygen Delivery Method Room Air 06/25/24 15:34 BMI result Body Mass Index 24.6 Tobacco/Smoking Status: Tobacco use Status Tobacco use date assessed 06/25/24 06/25/24 15:38 Patient Tobacco Use Status Never used Tobacco 06/25/24 15:38 e-Cigarette/Vaping Use Former Use 06/25/24 15:38 Thrive Assessment: Date of Thrive Assessment Date Thrive assessed 04/30/24 06/25/24 15:38 Currently or been in a relationship where the following occur: No concerns reported Const Orientation/consciousness: patient oriented x3 HENMT Ears: hearing grossly normal bilaterally and TM's normal bilaterally General nose exam: No nasal polyps present Face and sinus: Yes sinuses nontender Mouth: Normal oral and palatal mucosa present Eyes Pupils: Equal, round and reactive pupils present EOM: EOMs intact bilaterally Neck Neck: Yes full ROM and Yes no lymphadenopathy Thyroid: Thyroid normal Chest Chest palpation & inspection: normal inspection of the chest Resp Auscultation: clear to auscultation bilaterally Cardio Rate: regular rate Rhythm: regular rhythm Heart sounds: S1 normal heart sound present and S2 normal heart sound present Peripheral pulses: Peripheral pulses 2+ throughout GI Other: Soft, nontender Auscultation: normal bowel sounds Rectal Exam - Female: deferred General: Yes no CVA tenderness Back/Spine/Pelvis Other: Nontender Back: no CVA tenderness Skin General skin exam: no rashes or lesions noted Neuro General: patient oriented x3, gait normal, CN's II-XI intact bilaterally and deep tendon reflexes 2+ bilaterally Cranial nerves: Yes Equal, round and reactive pupils present Motor exam (neuro): 5/5 motor strength present throughout Sensory Exam: double simultaneous stimulation for sensation normal Coordination: [id number] test normal and Romberg test negative Extrem General: Yes normal to inspection and Yes full ROM Psych Affect: normal affect Attitude: cooperative Thought process: Normal thought process present Thought content: Normal thought content present Insight: Good insight present (Psych) Judgement: Good judgement present (Psych) Results Reviewed Results Reviewed: Laboratory Tests 06/04/24 06/24/24 09:13 08:57 WBC 5.2 RBC 4.65 Hgb 13.5 Hct 41.1 Plt Count 253 Ferritin 17 Total Bilirubin 0.3 Direct Bilirubin 0.1 AST 15 ALT 15 Alkaline Phosphatase 60 Total Protein 6.7 Albumin 4.1 Triglycerides 34 Cholesterol 114 LDL Cholesterol, Calc 51 HDL Cholesterol 57 TSH 1.07 Coding Level of Care Code Est Pt Prev Care 18-39y(78149) Diagnoses Routine general medical examination at a health care facility Z00.00 Elevated LFTs R79.89 Pelvic pain R10.2 Menorrhagia N92.0 Assessment & Plan Assessment & Plan (1) Routine general medical examination at a health care facility: Code(s): Z00.00 - Encounter for general adult medical examination without abnormal findings Plan: Health maintenance reviewed. (2) Elevated LFTs: Code(s): R79.89 - Other specified abnormal findings of blood chemistry Category: Medical Plan: We will recheck in a month Abdominal ultrasound ordered (3) Pelvic pain: Code(s): R10.2 - Pelvic and perineal pain Category: Medical Plan: Pelvic ultrasound ordered. (4) Menorrhagia: Code(s): N92.0 - Excessive and frequent menstruation with regular cycle Category: Medical Plan: As above. Also advised to follow with gynecology. Orders: Orders Hepatitis A IgM Today R79.89 - Other specified abnormal findings of blood chemistry, R94.5 - Abnormal results of liver function studies Liver Panel Today R79.89 - Other specified abnormal findings of blood chemistry US pelvic and transvaginal Today N92.0 - Excessive and frequent menstruation with regular cycle, R10.2 - Pelvic and perineal pain, R79.89 - Other specified abnormal findings of blood chemistry US abdomen complete Today N92.0 - Excessive and frequent menstruation with regular cycle, R10.2 - Pelvic and perineal pain, R79.89 - Other specified abnormal findings of blood chemistry Medications: Refilled triamcinolone acetonide 0.025% 1 appl topical TID 15 grams 0RF
[2024-06-25 15:34] VITALS: BP 94/64; PULSE 88; RESP 12; O2SAT 96; BMI 24.6
--- OUTSIDE RECORDS SUMMARY | 2024-06-25 16:23 | XMS_ITS | Clinical Summary ---
Author Organization [facility] it Address [address] [place] [address] Care Team Providers Care Bus Steward Name Role Phone Yasemin Ballesteros MD Primary Care Provider [phone] Allergies No known active allergies Medications hydrOXYzine [...] (Infanrix) 6wks to less than 7yo ,07/07/2004,2003,07/30,2003 [id number] (Pentacel) 2mo to less than 5yo 07/07/2004,2003,2003,06/02 [...] 12mo and older 07/05/2007,04/08/2004 Meningococcal MCV4P 01/23/2020,08/28/2014 [employer] SARS-CoV-2 COVID-19, mRNA, LNP-S, preservative free 07/15/2020,06/24/2020 [...] Father Coronary artery disease Maternal Grandfather s/p [place] prior to age 50 now with AICD/PPM, [...] AM EDT Office Visit Obstetrics and Gynecology [facility] [address] [place] [phone] Tanvir Toney, [facility] [address] [place] [address] Health Maintenance Due Date Last Done Comments [...] Relevant to Health Maintenance Insurance Care Teams Bus Steward Relationship Specialty Start Date End Date Yasemin Ballesteros MD [address] [place] [address] PCP - General Pediatrics 06/22/21
--- OUTSIDE RECORDS SUMMARY | 2024-06-25 16:23 | XMS_ITS | Clinical Summary ---
Author Organization [facility] Address [address] [place], [place] [phone] Phone Care Team Providers Care Pipe Line Inspector Name Role Phone Unavailable Primary Care Provider [...] Hepatitis A Vaccines Completed 10/12/2017, 09/30/[address] [place] [address] [place] [id number] HMO
--- OUTSIDE RECORDS SUMMARY | 2024-06-25 16:23 | XMS_ITS | Clinical Summary ---
Author Organization [facility] Address [address] [place] [address] Care Team Providers Care Machine Set Up Name Role Phone Unavailable Primary Care Provider [...] of 3 - 19+ 3-dose series) 2022 [id number] (3 - 2023- season) 2023 07/15/2020, 06/24/2020 [...] Subscriber:Self Name:Connie Salazar Payer ID:[id number] Type:Indemnity Address: [facility] [id number] [place] [address]
--- OUTSIDE RECORDS SUMMARY | 2024-06-25 16:23 | XMS_ITS | Encounter Summary ---
Author Organization [facility] Address [address] [place] [address] Phone Care Team Providers Care Histotechnician Name Role Phone Vidya Neumann MD Primary Care Provider [phone] Encounter Details Date Type Department Care Team (Late st Contact Info) Description 07/15/2017 [facility]counter [facility] [address] [address] Social History Tobacco Use Types Packs/Day Years [...] on filedocumented in this encounter Care Teams Histotechnician Relationship Specialty Start Date End Date Vidya Neumann MD [address] [place] [address] PCP - General Pediatrics 08/21/17 04/06/24 documented as of this encounter
== END 2024-06-25 15:58 | disposition home or self-care (01) ==
LOC: HO.HMCFM 15:29
PROVIDERS: PCP Physician Assistant; Visit Provider Physician Assistant
DX: Z00.00 Encounter for general adult medical examination without abnormal findings (principal); R79.89 Other specified abnormal findings of blood chemistry; R10.2 Pelvic and perineal pain; N92.0 Excessive and frequent menstruation with regular cycle

== ENCOUNTER → 2024-06-25 15:28 | Outpatient (BNVA) | payer BC, SELFPAY | PROVIDERS: PCP Physician Assistant; Visit Provider Physician Assistant ==

== ENCOUNTER 2024-09-18 11:15 | Outpatient (AMB) | payer BC, SELFPAY ==
--- NOTE | 2024-09-18 11:22 | A.OFFPC_ITS ---
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 Psych: She feels like she is getting very irritable and feels like her emotions are swinging back and forth. She states that she finds herself often just worrying about the next day and all of the things that she has to do. She is snappy with people who are close to her. She does not like feeling like this. She used to follow up closely with behavioral health but has not been seen in years and would like to go back. She used to think that her anxiety and depression were just mild and she had good control over it but over the last month or so it has been more persistent. She usually dwight by going to the gym but has not had much motivation to go back to the gym. No SI/HI. No auditory or visual hallucinations. 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 1. Little interest or pleasure in doing things: several days 2. Feeling down, depressed, or hopeless: nearly every day 3. Trouble falling or staying asleep, or sleeping too much: more than half the days 4. Feeling tired or having little energy: nearly every day 5. Poor appetite or overeating: several days 6. Feeling bad about yourself - or that you are a failure or have let yourself or your family down: several days 7. Trouble concentrating on things, such as reading the newspaper or watching television: nearly every day 8. Moving or speaking so slowly that other people could have noticed. Or the opposite - being so fidgety or restless that you have been moving around a lot more than usual: several days 9. Thoughts that you would be better off or of hurting yourself in some way: several days Total score: 16 Depression Screening Interpretation: Positive Depression Screening Follow-up: Existing condition, New Medication prescribed, Community Mental Health Worker F/U and Follow-up Visit Requested Depression Screening Done: Yes 63786 - PHQ-9 Billing: Yes Source: Developed by Drs. Jasper Rousseau, Megha Saba, Dutch Starkey and colleagues, with an educational merrick from [employer] reviews. Thrive Questionnaire Date Thrive assessed: 04/30/24 I am a: Patient What is your living situation today?: I have a steady place to live Within the past 12 months, did the food you bought not last and you didn't have the money to get more?: Never true Within the past 12 months, did you worry whether your food would run out before you got money to buy more?: Never true Do you have trouble paying for medicines?: No Do you have trouble getting transportation to medical appointments?: No Do you have trouble paying your heating and electricity bill?: No Do you have trouble taking care of your child, family member or friend?: No Do you have trouble with day-to-day activities such as bathing, preparing meals, shopping, managing finances, etc.?: No Are you currently unemployed and looking for a job?: No Are you interested in more education?: No Please select the resources that you would like help with: None Currently or been in a relationship where the following occur: No concerns reported THRIVE Score: 0 AUDIT C Alcohol Use Questionnaire (AUDIT-C) 1. How often do you have a drink containing alcohol?: Monthly or less 2. How many drinks containing alcohol do you have on a typical day when you are drinking?: 1 or 2 3. How often do you have six or more drinks on one occasion?: Never Total Score: 1 SARITHA-7 AMB Questionnaire SARITHA-7 Date SARITHA - 7 assessed: 09/18/24 Feeling nervous, anxious, or on edge: 3 = Nearly every day Not being able to stop or control worryin = Several days Worrying too much about different things: 1 = Several days Trouble relaxin = More than half the days Being so restless that it is hard to sit still: 2 = More than half the days Becoming easily annoyed or irritable: 3 = Nearly every day Feeling afraid as if something awful might happen: 3 = Nearly every day Total SARITHA-7 score (0-4 normal; 5-9 mild; 10-14 moderate; 15-21 severe): 15 Source: Developed by Drs. Jasper Rousseau, Megha Saba, Dutch Starkey and colleagues, with an educational merrick from Car reviews. SARITHA-7 Assessment Billing SARITHA-7 Assessment Tool: SARITHA-7 Assessment 32197 Physical exam (Primary Care) Vital Signs: Last Vital Signs Temp 98.4 F 09/18/24 11:27 Pulse 91 09/18/24 11:27 Resp 12 09/18/24 11:27 BP 94/70 09/18/24 11:27 Pulse Ox 98 09/18/24 11:27 Oxygen Delivery Method Room Air 09/18/24 11:27 BMI result Body Mass Index 24.0 Tobacco/Smoking Status: Tobacco use Status Tobacco use date assessed 09/18/24 09/18/24 11:30 Patient Tobacco Use Status Never used Tobacco 09/18/24 11:30 e-Cigarette/Vaping Use Former Use 09/18/24 11:30 PHQ-9: PHQ-9 Score PHQ-9: Total score 16 09/18/24 11:30 Depression Screening Interpretation: Positive Depression Screening Follow-up: Existing condition, New Medication prescribed, Community Mental Health Worker F/U and Follow-up Visit Requested Thrive Assessment: Date of Thrive Assessment Date Thrive assessed 04/30/24 09/18/24 11:30 Currently or been in a relationship where the following occur: No concerns reported Const Orientation/consciousness: patient oriented x3 HENMT Ears: hearing grossly normal bilaterally Neck Thyroid: Thyroid normal Lymphatic: no lymphadenopathy noted Resp Auscultation: clear to auscultation bilaterally Cardio Rate: regular rate Rhythm: regular rhythm Heart sounds: S1 normal heart sound present and S2 normal heart sound present GI Inspection: Yes normal to inspection Palpation (GI): Soft to palpation and Other GI palpation findings present (nontender, no cva tenderness) Auscultation: normoactive bowel sounds Rectal Exam - Female: deferred Skin General skin exam: no rashes or lesions noted Neuro General: patient oriented x3, gait normal and no focal motor deficits Results Reviewed Results Reviewed: Laboratory Tests 06/04/24 06/24/24 09:13 08:57 WBC 5.2 RBC 4.65 Hgb 13.5 Hct 41.1 Plt Count 253 Sodium 138 Potassium 4.2 Chloride 111 H Carbon Dioxide 24 Anion Gap 7 L BUN 11 Creatinine 0.65 Estimated GFR > 60 Fasting Glucose 82 Calcium 9.0 Ferritin 17 Total Bilirubin 0.3 Direct Bilirubin 0.1 AST 53 H 15 ALT 71 H 15 Alkaline Phosphatase 60 Total Protein 6.7 Albumin 4.1 Triglycerides 34 Cholesterol 114 LDL Cholesterol, Calc 51 HDL Cholesterol 57 25-OH Vitamin D Total 9 L TSH 1.07 Coding Level of Care Code Est Pt Level 4 (59259) Complex EM visit Add On G2211 Diagnoses Generalized anxiety disorder F41.1 Dysthymia F34.1 Additional Codes SARITHA-7 Assessment Billing - SARITHA-7 Assessment Tool: SARITHA-7 Assessment 84424 ([id number]) PHQ-9 - 82096 - PHQ-9 Billing: Yes ([id number]) Assessment & Plan Assessment & Plan (1) Generalized anxiety disorder: Code(s): F41.1 - Generalized anxiety disorder Category: Medical Plan: We will start her on Lexapro. Discussed risks and benefits and adverse effects of this medication. I have referred her to behavioral health. She will contact them and follow up. Short term follow up arranged for with an one-month. She will follow up sooner if anything worsens or changes. (2) Dysthymia: Code(s): F34.1 - Dysthymic disorder Category: Medical Plan: as above Orders: Referrals Behavioral Health Referral F34.1 - Dysthymic disorder, F41.1 - Generalized anxiety disorder Medications: New escitalopram oxalate (Lexapro) 5 mg PO DAILY 30 tabs 0RF
[2024-09-18 11:27] VITALS: BP 94/70; PULSE 91; RESP 12; TEMP 36.9; O2SAT 98; BMI 24.0
--- OUTSIDE RECORDS SUMMARY | 2024-09-18 12:11 | XMS_ITS | Encounter Summary ---
Author Organization [facility] Address [address] [place] [address] Phone Care Team Providers Care Life Insurance Sales Name Role Phone Vidya Neumann MD Primary Care Provider [phone] Encounter Details Date Type Department Care Team (Late st Contact Info) Description 07/15/2017 [facility]counter [facility] [address] [address] Social History Tobacco Use Types Packs/Day Years [...] on filedocumented in this encounter Care Teams Life Insurance Sales Relationship Specialty Start Date End Date Vidya Neumann MD [address] [place] [address] PCP - General Pediatrics 08/21/17 04/06/24 documented as of this encounter
--- OUTSIDE RECORDS SUMMARY | 2024-09-18 12:11 | XMS_ITS ---
Author Name [facility] Organization Unknown Care Team Organization Name Specialty Phone Email Start Date End Da te [facility] EVAN ZARATE Primary Care 03/06/2022 10/15/2023 [facility] Termed, PROVIDER Primary Care 01/03/202209/26
--- OUTSIDE RECORDS SUMMARY | 2024-09-18 12:11 | XMS_ITS | Clinical Summary ---
Author Organization [facility] [address] [facility] Address [address] [place] [address] Phone Care Team Providers Care Hired Worker Name Role Phone Yasemin Ballesteros MD Primary Care Provider [phone] Allergies No known active allergies Medications hydrOXYzine HCL (ATARAX) 10 mg tablet TAKE 1 TAB BY MOUTH 3 TIMES DAILY NEEDED FOR ANXIETY. CAN INCREASE DOSE TO 2 TABS 3 TIMES A DAY NEEDED IF LACK OF EFFICIENCY. 2 Active spironolactone (ALDACTONE) 25 mg tablet Take 1 tablet (25 mg total) by mouth 1 (one) time each day. 5 Active triamcinolone (KENALOG) 0.025 % cream Apply 1 Application topically 2 (two) times a day. 5 Active desogestreL-eth inyl estradioL (APRI,NADEEM,Venu JC,GRACY WYATT,BOWEN,KALL IGA) 0.15-0.03 mg per tablet Take 1 tablet by mouth 1 (one) time each day. 84 tablet 3 5 07/23/19 26 Active Active Problems Problem Noted Date Diagnosed Date Anxiety 01/23/2020 Weight loss 10/14/2018 Vitamin D deficiency 03/22/2018 Allergic rhinitis 02/13/2018 Depression 02/13/2018 Overview (05/01/2024): 10/12/17 doing better with mood. Middle School Counselor has spoken with High School Counselor- available if needed. Mother to monitor and all if not doing well. At that point, patient will be referred to Outside Therapist Encounters Date Type Department Care Team Description 07/24/2024 Telephone [facility] - [place] [address] [place] [phone] Griffin PiliKAREN 07/24/2024 Telephone [facility] - [place] [address] [place] [phone] Pili MoyaKAREN 07/23/2024 11:30 AM EDT Office Visit [facility] - [place] [address] [place] [phone] Tanvir Toney CNM Encounter for annual routine gynecological examination (Primary Dx); Screen for STD (sexually transmitted disease) from Last 3 Months Immunizations Name Administration Dates Next Due DTaP (Infanrix) 6wks to less than 7yo ,07/07/2004,2003,07/30,2003 [id number] (Pentacel) 2mo to less than 5yo 07/07/2004,2003,2003,06/02 [...] 12mo and older 07/05/2007,04/08/2004 Meningococcal MCV4P 01/23/2020,08/28/2014 Pfizer SARS-CoV-2 COVID-19, mRNA, LNP-S, preservative free [...] Sexual Orientation Not on file Obstetrics History Para Term AB IAB SAB Ectopic Multiple Livin g Live Births 0 0 0 0 0 0 0 0 0 0 0 Last Filed Vital Signs Vital Sign Reading Time Taken Comments Blood Pressure 90/59 07/23/2024 11:40 AM EDT Pulse 92 07/23/2024 11:40 AM EDT Temperature - - Respiratory Rate - - Oxygen Saturation - - Inhaled Oxygen Concentration - - Weight 65.2 kg (143 lb 12.8 oz) 025 11:40 AM EDT Height 155 cm (5' 1.02 ) 07/23/2024 11: 40 AM EDT Body Mass Index 27.15 07/23/2024 11:40 AM EDT Plan of Treatment Health Maintenance Due Date Last Done Comments Meningococcal B Vaccine (1 of 2 - Standard) 2019 HIV Screening 01/29/2022 Hepatitis C Screening 01/29/2022 Social Influencers of Health Screening 01/29/2022 COVID-19 Vaccine (3 - season) 2023 07/15/2020, 06/24/2020 Depression Screening 02/27/2024 DTaP,Tdap,and Td Vaccines (7 - Td or Tdap) 08/28/2024 08/28/2014, 07/21/2008, 07/07/2004, Additional history exists Influenza Vaccine (#1) 2024 , 01/23/2020, 01/04/2008, Additional history exists Cholesterol Screening (Lipid Panel) 01/22/2025 01/23/2020 Annual Well Child Visit (3-21 years old) 07/23/2025 07/23/2024, 01/28/2021, 01/23/2020, Additional history exists Gonorrhea/Chlamydia Screening 07/23/2025 07/23/2024, 01/23/2022 Cervical Cancer Screening: Pap Smear 07/24/2027 07/23/2024 Pneumococcal Vaccine: Pediatrics (0 to 5 Years) and At-Risk Patients (6 to 49 Years) Aged Out 2003, 2003, 2003 No [...] Procedure Name Priority Date/Time Associated Diagnosis Comments PAP SMEAR Routine 07/23/2024 12:56 PM EDT Encounter for annual routine gynecological examination TRICHOMONAS VAGINALIS ANTIGEN Routine 07/23/2024 12:56 PM EDT Screen for STD (sexually transmitted disease) CHLAMYDIA TRACHOMATIS AND NEISSERIA GONORRHOEAE PCR Routine 07/23/2024 12:56 PM EDT Screen for STD (sexually transmitted disease) WET PREP, GENITAL Routine 07/23/2024 12: 56 PM EDT Screen for STD (sexually transmitted disease) LIPID PANEL Routine 01/23/2020 from Last 3 Months or Most Recently Relevant to Health Maintenance Results * Trichomonas vaginalis antigen (07/23/2024 12:56 PM EDT) Trichomonas vaginalis Negative Negative 07/23/2024 6:01 PM EDT [facility] Swab Vaginal structure / Unknown Non-blood Collection / Unknown 07/23/2024 12:56 PM EDT 07/23/2024 12:59 PM EDT us Tanvir ALEXANDER LAB MICROBIOLOGY - GENERAL ORD ERABLES Final Result [facility] [address] [place] [address], * Chlamydia trachomatis and Neisseria gonorrhoeae molecular study (07/23/2024 12:56 PM EDT) Neisseria gonorrhoeae PCR Negative Negative LAB MOLECULAR DIAGNOSTICS METHOD 07/24/2024 11:54 AM EDT [facility] Chlamydia trachomatis PCR Negative Negative LAB MOLECULAR DIAGNOSTICS METHOD 07/24/2024 11:54 AM EDT [facility] Swab Cervix uteri structure / Unknown Non-blood Collection / Unknown 07/23/2024 12:56 PM EDT 07/23/2024 12:59 PM EDT Tanvir ALEXANDER LAB MICROBIOLOGY - GENERAL ORD ERABLES Final Result Performing Organization Address City/[facility]/ZIP Co de Phone Number [facility] [address] [place] [address], [place] [phone] * Wet prep, genital (07/23/2024 12:56 PM EDT) Clue Cells, Wet Prep Negative Negative 07/23/2024 5:49 PM EDT [facility] Yeast, Wet Prep Negative Negative 07/23/2024 5:49 PM EDT [facility] Trichomonas, Wet Prep Indeterminate Negative 07/23/2024 5:49 PM EDT [facility] Comment:Refer to Trichomonas antigen. Swab Vaginal structure / Unknown Non-blood Collection / Unknown 07/23/2024 12:56 PM EDT 07/23/2024 12:59 PM EDT Tanvir ALEXANDER LAB MICROBIOLOGY - GENERAL ORD ERABLES Final Result [facility] [address] [place] [address], [place] [phone] * Pap smear (07/23/2024 12:56 PM EDT) Interpretation Negative for intraepithelial lesion or malignancy 07/25/2024 2:45 PM EDT [facility] General Categorization Negative 07/25/2024 2:45 PM EDT [facility] LMP 07/06/2024 07/25/2024 2:45 PM EDT [facility] Specimen Adequacy Satisfactory for evaluation, endocervical/shanks sformation zone component present 07/25/2024 2:45 PM EDT [facility] Pap Methodology Liquid Based Pap Test 07/25/2024 2:45 PM EDT [facility] Disclaimer The Pap test is a screening test which carries an inherent false negative rate. These test results should be correlated with the patient's clinical findings and history. This Pap test was processed using an automated screening system. Technical cytopathology services provided by [facility], at [address] [place] [id number] (CLIA # [id number]/Clyde Mooney MD, Tile Power Shear Operator.) 07/25/2024 2:45 PM EDT [facility] Console Pap Interpretation Reported 07/25/2024 2:45 PM EDT [facility] Brushing/Spatula Cervix uteri structure / Unknown 07/23/2024 12:56 PM EDT 07/23/2024 12:59 PM EDT Tanvir Toney CNM LAB CYTOLOGY ORDERABLES Final Result [facility] [address] [place] [address], * Lipid panel (01/23/2020) LDL/HDL Ratio 2 0 - 4 Triglycerides 50 0 - 150 mg/dL Cholesterol 140 0 - 200 mg/dL HDL 58 >=40 mg/dL LDL Cholesterol 72 0 - 100 mg/dL Blood Venous blood specimen / Unknown Historical Provider LAB BLOOD ORDERABLES Radha l Result from Last 3 Months or Most Recently Relevant to Health Maintenance Insurance [facility] Care Teams Hired Worker Relationship Specialty Start Date End Date Yasemin Ballesteros MD [address] [place] [address] PCP - General Pediatrics 06/22/21
--- OUTSIDE RECORDS SUMMARY | 2024-09-18 12:11 | XMS_ITS | Clinical Summary ---
Author Organization [facility] Address [address] [place] [address] Care Team Providers Care Pallet Sorter Name Role Phone Unavailable Primary Care Provider [...] of 3 - 19+ 3-dose series) 2022 [id number] (3 - 2023- season) 2023 07/15/2020, 06/24/2020 Alcohol and Drug Screen 02/27/2024 Depression Annual Screen 02/27/2024 Cervical Cancer Screening 2024 Pap Smear 2024 Imm-Influenza (#1) 2024 Cervical Ablation/Cold-Knife Conization Discontinued Cervical Cryotherapy Discontinued Colposcopy Discontinued Endometrial Biopsy Discontinued Excision/Leep Discontinued HPV Genotyping Discontinued Imm-Hepatitis A Aged Out No longer el igible based on patient's age to complete this topic Vaginal Pap Discontinued Vulvoscopy Discontinued Insurance DANTE AWAD/MISTY JONES
== END 2024-09-18 11:45 | disposition home or self-care (01) ==
LOC: HO.HMCFM 11:16
PROVIDERS: PCP Physician Assistant; Visit Provider Physician Assistant
DX: F41.1 Generalized anxiety disorder (principal); F34.1 Dysthymic disorder

== ENCOUNTER → 2024-09-18 11:15 | Outpatient (BNVA) | payer BC, SELFPAY | PROVIDERS: PCP Physician Assistant; Visit Provider Physician Assistant | DX: F41.1 Generalized anxiety disorder (principal); F34.1 Dysthymic disorder; Z13.31 Encounter for screening for depression; Z13.39 Encounter for screening examination for other mental health and behavioral disorders | CPT/HCPCS: 96127 ==

== ENCOUNTER 2024-10-22 15:08 | Outpatient (AMB) | payer BC, SELFPAY ==
--- NOTE | 2024-10-22 15:13 | A.OFFPC_ITS ---
Vital Signs 10/22/24 15:17 Height 5 ft 3.86 in Weight 142 lb 4 oz BMI 24.5 BP 98/66 Blood Pressure Location Lt brachial Position Sitting Respiration 12 Pulse 62 Pulse Source Pulse Oximeter Temp 97.3 F Temp Source Oral Pulse Oximetry (%) 98 Oxygen Delivery Method Room Air Intake Visit Reasons: anxiety Intake Note: Follow up on anxiety Part Time Flexible Clerk Required: No Allergies No Known Allergies Allergy (Verified 10/22/24 15:14) Medication List - Last Reconciled 10/22/24 by Radha Razo PA-C cholecalciferol (vitamin D3) 1,250 mcg PO QWEEK hydroxyzine HCl 25 mg PO BID PRN spironolactone 25 mg PO DAILY triamcinolone acetonide 0.025% 1 appl topical TID Tobacco use date assessed: 10/22/24 Dental Screening Dental Screen Date: 10/22/24 Did you have a dental visit in the last 12 months?: Yes Did you have a dental problem in the last 6 months where you did not have access to dental care?: No Was dental information given to patient?: Patient has dentist HPI anxiety HPI Details Pt is a 19 y/o female who presents today for a follow up regarding her mental health. Psych: She feeling well with the Lexapro. She states that it seems to be effective but she would like to increase the dose slightly. No SI/HI. 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 1. Little interest or pleasure in doing things: not at all 2. Feeling down, depressed, or hopeless: not at all 3. Trouble falling or staying asleep, or sleeping too much: not at all 4. Feeling tired or having little energy: not at all 5. Poor appetite or overeating: not at all 6. Feeling bad about yourself - or that you are a failure or have let yourself or your family down: not at all 7. Trouble concentrating on things, such as reading the newspaper or watching television: not at all 8. Moving or speaking so slowly that other people could have noticed. Or the opposite - being so fidgety or restless that you have been moving around a lot more than usual: not at all 9. Thoughts that you would be better off or of hurting yourself in some way: not at all Total score: 0 Depression Screening Interpretation: Negative Depression Screening Done: Yes 28993 - PHQ-9 Billing: Yes Source: Developed by Drs. Jasper Rousseau, Megha Saba, Dutch Starkey and colleagues, with an educational merrick from [employer]. Thrive Questionnaire Date Thrive assessed: 04/30/24 I am a: Patient What is your living situation today?: I have a steady place to live Within the past 12 months, did the food you bought not last and you didn't have the money to get more?: Never true Within the past 12 months, did you worry whether your food would run out before you got money to buy more?: Never true Do you have trouble paying for medicines?: No Do you have trouble getting transportation to medical appointments?: No Do you have trouble paying your heating and electricity bill?: No Do you have trouble taking care of your child, family member or friend?: No Do you have trouble with day-to-day activities such as bathing, preparing meals, shopping, managing finances, etc.?: No Are you currently unemployed and looking for a job?: No Are you interested in more education?: No Please select the resources that you would like help with: None Currently or been in a relationship where the following occur: No concerns reported THRIVE Score: 0 SARITHA-7 AMB Questionnaire SARITHA-7 Date SARITHA - 7 assessed: 10/22/24 Feeling nervous, anxious, or on edge: 0 = Not at all Not being able to stop or control worryin = Not at all Worrying too much about different things: 0 = Not at all Trouble relaxin = Not at all Being so restless that it is hard to sit still: 0 = Not at all Becoming easily annoyed or irritable: 0 = Not at all Feeling afraid as if something awful might happen: 0 = Not at all Total SARITHA-7 score (0-4 normal; 5-9 mild; 10-14 moderate; 15-21 severe): 0 Source: Developed by Drs. Jasper Rousseau, Megha Saba, Dutch Starkey and colleagues, with an educational merrick from [employer]. SARITHA-7 Assessment Billing SARITHA-7 Assessment Tool: SARITHA-7 Assessment 42618 Physical exam (Primary Care) Vital Signs: Last Vital Signs Temp 97.3 F 10/22/24 15:17 Pulse 62 10/22/24 15:17 Resp 12 10/22/24 15:17 BP 98/66 10/22/24 15:17 Pulse Ox 98 10/22/24 15:17 Oxygen Delivery Method Room Air 10/22/24 15:17 BMI result Body Mass Index 24.5 Tobacco/Smoking Status: Tobacco use Status Tobacco use date assessed 10/22/24 10/22/24 15:16 Patient Tobacco Use Status Never used Tobacco 10/22/24 15:16 e-Cigarette/Vaping Use Former Use 10/22/24 15:16 PHQ-9: PHQ-9 Score PHQ-9: Total score 0 10/22/24 15:22 Depression Screening Interpretation: Negative Thrive Assessment: Date of Thrive Assessment Date Thrive assessed 04/30/24 10/22/24 15:16 Currently or been in a relationship where the following occur: No concerns reported Const Orientation/consciousness: patient oriented x3 HENMT Ears: hearing grossly normal bilaterally Neck Thyroid: Thyroid normal Lymphatic: no lymphadenopathy noted Resp Auscultation: clear to auscultation bilaterally Cardio Rate: regular rate Rhythm: regular rhythm Heart sounds: S1 normal heart sound present and S2 normal heart sound present GI Inspection: Yes normal to inspection Palpation (GI): Soft to palpation and Other GI palpation findings present (nontender, no cva tenderness) Auscultation: normoactive bowel sounds Rectal Exam - Female: deferred Skin General skin exam: no rashes or lesions noted Neuro General: patient oriented x3, gait normal and no focal motor deficits Coding Level of Care Code Est Pt Level 4 (13866) Complex EM visit Add On G2211 Diagnoses Generalized anxiety disorder F41.1 Dysthymia F34.1 Acne L70.9 Vitamin D deficiency E55.9 Additional Codes SARITHA-7 Assessment Billing - SARITHA-7 Assessment Tool: SARITHA-7 Assessment 42477 ([id number]) PHQ-9 - 31633 - PHQ-9 Billing: Yes ([id number]) Assessment & Plan Assessment & Plan (1) Generalized anxiety disorder: Code(s): F41.1 - Generalized anxiety disorder Category: Medical Plan: Increase Lexapro to 10 mg. Return in a few months for re-evaluation. Sooner if needed. (2) Dysthymia: Code(s): F34.1 - Dysthymic disorder Category: Medical Plan: As above. (3) Acne: Code(s): L70.9 - Acne, unspecified Category: Medical Plan: Currently well managed with spironolactone. We will monitor labs (4) Vitamin D deficiency: Code(s): E55.9 - Vitamin D deficiency, unspecified Category: Medical Plan: Still on supplement. Orders: Orders Complete Blood Count Auto Diff 10/22/24 E55.9 - Vitamin D deficiency, unspecified, F34.1 - Dysthymic disorder, F41.1 - Generalized anxiety disorder, L70.9 - Acne, unspecified TSH reflex Free T4 10/22/24 E55.9 - Vitamin D deficiency, unspecified, F34.1 - Dysthymic disorder, F41.1 - Generalized anxiety disorder, L70.9 - Acne, unspecified Vitamin D 25-OH Total 10/22/24 E55.9 - Vitamin D deficiency, unspecified, F34.1 - Dysthymic disorder, F41.1 - Generalized anxiety disorder, L70.9 - Acne, unspecified Comprehensive Capron. Panel Fast 10/22/24 E55.9 - Vitamin D deficiency, unspecified, F34.1 - Dysthymic disorder, F41.1 - Generalized anxiety disorder, L70.9 - Acne, unspecified Medications: New escitalopram oxalate (Lexapro) 10 mg PO DAILY 90 tabs 2RF Discontinued escitalopram oxalate Discontinued Reason: Doctor's Order 5 mg PO DAILY 90 tabs 3RF
[2024-10-22 15:17] VITALS: BP 98/66; PULSE 62; RESP 12; TEMP 36.3; O2SAT 98; BMI 24.5
--- OUTSIDE RECORDS SUMMARY | 2024-10-22 16:24 | XMS_ITS | Clinical Summary ---
Author Organization [facility] Address [address] [place] [address] Care Team Providers Care Pilot Control Operator Name Role Phone Unavailable Primary Care Provider [...] of 3 - 19+ 3-dose series) 2022 [id number] (3 - 2023- season) 2023 07/15/2020, 06/24/2020 [...]
--- OUTSIDE RECORDS SUMMARY | 2024-10-22 16:24 | XMS_ITS | Clinical Summary ---
Author Organization [facility] [address] [facility] [address] Address [address] [place] [address] Phone Care Team Providers Care Roll Over Press Operator Name Role Phone Radha Razo Primary Care Provider Allergies No known active allergies Medications hydrOXYzine [...] a day. 5 Active desogestreL-eth inyl estradioL (APRI,Venu SILVER,BOWEN DUBOSE OM,SYLVIA HWANG) 0.15-0.03 mg per tablet Take 1 tablet [...] Encounters Date Type Department Care Team Description 09/30/2024 8:08 AM EDT - 09/30/2024 9:16 AM EDT Emergency [facility] Emergency [address] [place] [address] Sprain of left ankle, initial encounter (Primary Dx) Discharge Disposition: Home or Self Care 07/24/2024 Telephone Obstetrics and Gynecology - [place] [address] [place] [phone] [place] 07/24/2024 Telephone Obstetrics and Gynecology - [place] [address] [place] [phone] [place] 07/23/2024 11:30 AM EDT Office Visit Obstetrics and Gynecology - [address] [phone] Tanvir Toney CNM Encounter for annual routine gynecological examination (Primary Dx); Screen for STD (sexually transmitted disease) from Last 3 Months Immunizations Name Administration Dates Next Due DTaP (Infanrix) 6wks to less than 7yo ,07/07/2004,2003,07/30,2003 [id number] (Pentacel) 2mo to less than 5yo 07/07/2004,2003,2003,06/02 [...] 12mo and older 07/05/2007,04/08/2004 Meningococcal MCV4P 01/23/2020,08/28/2014 Pond5 SARS-CoV-2 COVID-19, mRNA, LNP-S, preservative free 07/15/2020,06/24/2020 [...] Father Coronary artery disease Maternal Grandfather s/p MO prior to age 50 now with AICD/PPM, [...] Sign Reading Time Taken Comments Blood Pressure 100/72 09/30/2024 8:06 AM EDT Pulse 86 09/30/2024 8:06 AM EDT Temperature 36.9 C (98.4 F) 09/30/2024 8:06 AM EDT Respiratory Rate 18 09/30/2024 8:06 AM EDT Oxygen Saturation 100% 09/30/2024 8:06 AM EDT Inhaled Oxygen Concentration - - Weight 61.2 kg (135 lb) 09/30/2024 8:06 AM EDT Height 167.6 cm (5' 6 ) 09/30/2024 8:06 AM EDT Body Mass Index 21.79 09/30/2024 8:06 AM EDT Plan of Treatment Health Maintenance [...] Procedure Name Priority Date/Time Associated Diagnosis Comments XR ANKLE 3+ VIEWS LEFT STAT 09/30/2024 8:35 AM EDT PAP SMEAR Routine 07/23/2024 12:56 PM EDT [...] Recently Relevant to Health Maintenance Results * XR Ankle 3+ Views Left (09/30/2024 8:35 AM EDT) Anatomical Region Laterality Modality Lower Extremities, Ankle Left Radiogr aphic Imaging 09/30/2024 8:49 AM EDT Impressions 09/30/2024 8:50 AM EDT No acute fracture or subluxation. -------- FINAL REPORT -------- Dictated By: Niall Soares Dictated Date: 09/30/2024 08:49 ET Assigned Physician: Niall Soares Reviewed and Electronically Signed By: Niall Soares Signed Date: 09/30/2024 08:50 ET Workstation ID: [id number] Transcribed By: Self Edit Transcribed Date: 09/30/2024 08:49 ET Narrative 09/30/2024 8:50 AM EDT EXAMINATION: LEFT ANKLE CLINICAL INFORMATION: Pain. Injury COMPARISON: None. TECHNIQUE: 3 views left ankle FINDINGS: The alignment is normal. There is no acute fracture. The talar dome contour is smooth. There is soft tissue swelling. Procedure Note Niall Soares MD - 09/30/2024 EXAMINATION: LEFT ANKLE CLINICAL INFORMATION: Pain. Injury COMPARISON: None. TECHNIQUE: 3 views left ankle FINDINGS: The alignment is normal. There is no acute fracture. The talar domecontour is smooth. There is soft tissue swelling. IMPRESSION: No acute fracture or subluxation. -------- FINAL REPORT -------- Dictated By: Niall Soares Dictated Date: 09/30/2024 08:49 ET Assigned Physician: Niall Soares Reviewed and Electronically Signed By: Niall Soares Signed Date: 09/30/2024 08:50 ET Workstation ID: [id number] Transcribed By: Self Edit Transcribed Date: 09/30/2024 08:49 ET us Diana Camarillo BOILER WELDER IMG XR PROCEDURES Final Result * Trichomonas vaginalis antigen (07/23/2024 12:56 PM EDT) Trichomonas vaginalis Negative Negative 07/23/2024 6:01 PM EDT [facility] Swab Vaginal structure / Unknown Non-blood Collection / Unknown 07/23/2024 12:56 PM EDT 07/23/2024 12:59 PM EDT us Tanvir ALEXANDER LAB MICROBIOLOGY - GENERAL ORD ERABLES Final Result [facility] [address] [place] [address], [place] [phone] * Chlamydia trachomatis and Neisseria gonorrhoeae molecular study (07/23/2024 12:56 PM EDT) Pathologist [facility] Neisseria gonorrhoeae PCR Negative Negative LAB MOLECULAR DIAGNOSTICS METHOD 07/24/2024 11:54 AM EDT [facility] Chlamydia trachomatis PCR Negative Negative LAB MOLECULAR DIAGNOSTICS METHOD 07/24/2024 11:54 AM EDT [facility] Swab Cervix uteri structure / Unknown Non-blood Collection / Unknown 07/23/2024 12:56 PM EDT 07/23/2024 12:59 PM EDT us Tanvir Toney CNM LAB MICROBIOLOGY - GENERAL ORD ERABLES Final Result Performing Organization Address [facility]/ZIP Co de Phone Number [facility] [address] [place] [address], [place] [phone] * Wet prep, genital (07/23/2024 12:56 PM EDT) Pathologist [facility] Clue Cells, Wet Prep Negative Negative 07/23/2024 5:49 PM EDT [facility] Yeast, Wet Prep Negative Negative 07/23/2024 5:49 PM EDT [facility] Trichomonas, Wet Prep Indeterminate Negative 07/23/2024 5:49 PM EDT [facility] Comment:Refer to Trichomonas antigen. Swab Vaginal structure / Unknown Non-blood Collection / Unknown 07/23/2024 12:56 PM EDT 07/23/2024 12:59 PM EDT us Tanvir Toney CNM LAB MICROBIOLOGY - GENERAL ORD ERABLES Final Result [facility] [address] [place] [address], [place] [phone] * Pap smear (07/23/2024 12:56 PM EDT) Interpretation Negative for intraepithelial lesion or malignancy 07/25/2024 2:45 PM EDT [facility] General Categorization Negative 07/25/2024 2:45 PM EDT [facility] LMP 07/06/2024 07/25/2024 2:45 PM EDT [facility] Specimen Adequacy Satisfactory for evaluation, endocervical/shanks sformation zone component present 07/25/2024 2:45 PM EDT [facility] Pap Methodology Liquid Based Pap Test 07/25/2024 2:45 PM EDT [facility] Disclaimer The Pap test is a screening test which carries an inherent false negative rate. These test results should be correlated with the patient's clinical findings and history. This Pap test was processed using an automated screening system. Technical cytopathology services provided by [facility], at [address] [place] [address] (CLIA # [id number]/Clyde Mooney MD, Physician/Allergy/Immunology.) 07/25/2024 2:45 PM EDT [facility] Console Pap Interpretation Reported 07/25/2024 2:45 PM EDT [facility] Brushing/Spatula Cervix uteri structure / Unknown 07/23/2024 12:56 PM EDT 07/23/2024 12:59 PM EDT Tanvir Toney CNM LAB CYTOLOGY ORDERABLES Final Result [facility] [address] [place] [address], * Lipid panel (01/23/2020) LDL/HDL Ratio 2 0 - 4 Triglycerides 50 0 - 150 mg/dL Cholesterol 140 0 - 200 mg/dL HDL 58 >=40 mg/dL LDL Cholesterol 72 0 - 100 mg/dL Blood Venous blood specimen / Unknown us Historical Provider LAB BLOOD ORDERABLES Radha l Result from Last 3 Months or Most Recently Relevant to Health Maintenance Insurance [facility] Care Teams Roll Over Press Operator Relationship Specialty Start Date End Date Radha Razo PA [address] [place] [address] PCP - General Physician [employer] Out 09/30/24
--- OUTSIDE RECORDS SUMMARY | 2024-10-22 16:24 | XMS_ITS | Encounter Summary ---
Author Organization [facility] Address [address] [place] [phone] Phone Care Team Providers Care Program Project Manager Name Role Phone Vidya Neumann MD Primary Care Provider [phone] Encounter Details Date Type Department Care Team (Late st Contact Info) Description 07/15/2017 Conversion [facility]counter [facility] [address] [address] Social History Tobacco Use Types Packs/Day Years [...] on filedocumented in this encounter Care Teams Program Project Manager Relationship Specialty Start Date End Date Vidya Neumann MD [address] [place] [address] PCP - General Pediatrics 08/21/17 04/06/24 documented as of this encounter
--- OUTSIDE RECORDS SUMMARY | 2024-10-22 16:24 | XMS_ITS | Clinical Summary ---
Author Organization [facility] Address [address] [place], [place] [id number] Phone Care Team Providers Care Intake Manager Name Role Phone Unavailable Primary Care [...] AM EDT Pulse - - Temperature 36.1 C (97 F) 11/26/2014 12:00 AM EDT Respiratory Rate - - Oxygen Saturation - - Inhaled Oxygen Concentration - - Weight 59.8 kg (131 lb 12.8 oz) 10/12/2017 9:54 AM EDT Height 165.1 cm (5' 5 ) 10/12/2017 9:54 AM EDT Body Mass Index 21.93 10/12/2017 9:54 AM EDT Plan of Treatment Health Maintenance Due Date Last Done Comments Men B Vaccine (1 of 2 - Standard) 2019 COVID-19 Vaccine ( - season) 2023 DTaP,Tdap,and Td Vaccines (7 - Td or Tdap) 08/28/2024 08/28/2014, 07/21/2008, 07/07/2004, Additional history exists Influenza Vaccines (#1) 2024 01/04/20 08, 12/16/2004, 02/05/2004, Additional history exists Pneumococcal Vaccine Aged Out [...] Hepatitis A Vaccines Completed 10/12/2017, 09/30/19 17 Insurance [facility]
== END 2024-10-22 15:27 | disposition home or self-care (01) ==
LOC: HO.HMCFM 15:08
PROVIDERS: PCP Physician Assistant; Visit Provider Physician Assistant
DX: F41.1 Generalized anxiety disorder (principal); F34.1 Dysthymic disorder; L70.9 Acne, unspecified; E55.9 Vitamin D deficiency, unspecified

== ENCOUNTER → 2024-10-22 15:08 | Outpatient (BNVA) | payer BC, SELFPAY | PROVIDERS: PCP Physician Assistant; Visit Provider Physician Assistant | DX: F41.1 Generalized anxiety disorder (principal); F34.1 Dysthymic disorder; L70.9 Acne, unspecified; E55.9 Vitamin D deficiency, unspecified | CPT/HCPCS: 96127 ==